=== PATIENT | male | born 1970 | race Two or more races ===

== ENCOUNTER 2018-05-13 08:30 | Emergency (ER) | payer MEDICAID ==
[~2018-05-13] VITALS: Ht 162.6 cm; Wt 77.1 kg
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
[2018-05-13] MEDS ORDERED: ONDANSETRON HCL/PF 4 MG/2 ML VIAL ONE ×2 (08:45→09:42)
[2018-05-13] MEDS ORDERED: MORPHINE SULFATE INJ 4 MG/ML DISP.SYRIN ONE ×3 (08:45→12:00)
[2018-05-13] MEDS ORDERED: MORPHINE SULFATE INJ 2 MG/ML DISP.SYRIN IV ONE ×3 (09:00→13:00)
[2018-05-13] MEDS ORDERED: ONDANSETRON HCL/PF - ER 4 MG/2 ML VIAL IV ONE ×2 (09:00→13:00)
--- NOTE | 2018-05-13 09:42 | NUR ---
called ortho [phone] the [employer]er md. oviedo [phone]
--- NOTE | 2018-05-13 09:51 | NUR ---
DR. GANT CALLED BACK, NOW TALKING TO DR. WOODY
--- NOTE | 2018-05-13 10:39 | NUR ---
PT FOR LEFT ANKLE CLOSE REDUCTION WITH CONSCIOUS SEDATION.
--- NOTE | 2018-05-13 11:10 | NUR ---
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
[2018-05-13] MEDS ORDERED: PROPOFOL 20 ML IV ONE (11:58)
[2018-05-13] MEDS ORDERED: PROPOFOL 200 MG/20 ML VIAL IV ONE (12:00)
[2018-05-13 14:12] VITALS: BP 132/80
--- NOTE | 2018-05-13 14:13 | NUR ---
Patient discharged to home in stable condition. Written and verbal after care instructions given. Patient verbalizes understanding of instruction.IV removed. Catheter intact and site benign. Pressure and 4x4 applied to site. No bleeding noted.
== END 2018-05-13 14:13 | disposition home or self-care (01) ==
LOC: ER 08:33
DX: S82.892A Other fracture of left lower leg, initial encounter for closed fracture (principal); V13.4XXA Pedal cycle driver injured in collision with car, pick-up truck or van in traffic accident, initial encounter; Y93.55 Activity, bike riding; Y92.413 State road as the place of occurrence of the external cause; Y99.8 Other external cause status
CPT/HCPCS: 73600-TC; 73700-TC; A4606; J2270; J2405; J2704; Z7610